=== PATIENT | male | born 1975 | race Caucasian/White ===

== ENCOUNTER 2017-08-10 18:15 | Emergency (ER) | payer BC, MEDICAID ==
[~2017-08-10] VITALS: Ht 167.6 cm; Wt 72.6 kg
[2017-08-10 18:15] VITALS: BP 120/67
== END 2017-08-10 19:23 | disposition home or self-care (01) ==
LOC: ER 18:16
DX: M54.2 Cervicalgia (principal); F17.200 Nicotine dependence, unspecified, uncomplicated; Z88.0 Allergy status to penicillin; V49.49XA Driver injured in collision with other motor vehicles in traffic accident, initial encounter; Y93.89 Activity, other specified; Y92.413 State road as the place of occurrence of the external cause; Y99.8 Other external cause status
CPT/HCPCS: 99283; 99406; A4606; Z7610